=== PATIENT | male | born 1985 | race Caucasian/White ===

== ENCOUNTER 2024-12-09 14:35 | Outpatient (AMB) | payer BC, SELFPAY ==
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
--- OUTSIDE RECORDS SUMMARY | 2024-12-09 14:37 | XMS_ITS | Data Portability ---
Author Organization [facility] Address [address] [place] [id number] Assessment No assessment recorded. Plan of Treatment Reminders Order Date Submit Date Provider Last Modified By Organization Details Last Modified Time Details Appointments None record ed. Lab None record ed. Referral None record ed. Procedures None record ed. Surgeries None record ed. Imaging None record ed. Medication Orders None record ed. Patient TargetsNo targets recorded. Patient Instructions Encounter Date Encounter Id Patient Instructions Last Modified By Organization Details Last Modified Time 12/09/2022 [id number] This physical does not replace the annual physical to be performed by your PCP. There may be additional screening tests that they will perform that we do not in the urgent care setting. Failure to follow up as recommended may result in significant adverse health consequences. ??? If your symptoms worsen or you develop new symptoms that concern you, go to the emergency department for further evaluation. [email or web address] Not available 12/09/2022 10:13:48 Reason for Referral None Reported. Procedures Surgical History Date Name Laterality Status Provider Name and Address Organization Details Recorded Time OC-DOT PHYSICAL completed SUE [facility] 12/09/2022 09:44:22 Imaging Results None recorded. Procedure Notes None recorded. Medical Equipment None Reported. Medications Name Sig Start Date Stop Date Status Note LastModified by Organization Details LastModified Time buprenorphine 2 mg-naloxone 0.5 mg sublingual film 3 FILM DIRECTED DAILY active Not Available Not Available No t Available buprenorphine 8 mg-naloxone 2 mg sublingual film USE 1 FILM DAILY active Not Available Not Available No t Available buprenorphine 4 mg-naloxone 1 mg sublingual film 1 FILM UNDER THE TONGUE TWICE A DAY active Not Available Not Available No t Available Sublocade 300 mg/1.5 mL solution,exten ded release subcutaneous syringe active Not Available Not Available Not Available Vitals None Recorded Social History None recorded. Functional Status None recorded. Mental Status None recorded. Family History Nothing Reported. Medical History No medical history recorded. Past Encounters Encounter ID Performer Location Encounter Start Date Encounter Closed Date Diagnosis/Indication Diagnosis SNOMED-CT Code Diagnosis ICD10 Code Diagnosis Note [id number] [address] [facility] [place] [address] 08/03/2020 08:04:11 08/03/2020 08:49:02 [id number] [address] [place] [address] 04/19/2020 10:49:41 04/19/2020 11:33:17 [id number] Benedict Rodriguez [place] [address] [facility] [place] [address] 12/09/2022 09:35:58 12/09/2022 10:24:57 [employer] Business Banking Officer license medical examination [id number] Z02.4 Physical examination 588 0005 Z02.4 History an d physical examination, pre-employment [id number] Z02.1 Health Concerns Section Related Observation LastModified by Organization Detai ls LastModified Time None Recorded Concern Status LastModified by Organization Details LastModified Time None Recorded Advance Directives Directive None Recorded Payers Insurance Date Sequence Insurance Name Policy Number Policy Begum Covered Member ID Begum Member ID Guarantor Name 12/09/2022 1 BCELISHA-KIMBERLEY (PPO) [id number] Alex [facility] [id number] Alex [facility] 12/09/2022 PAY AT TOS Hi-Dis([place]) QUALITY BEVERAGE QUALITY BEVERAGE Alex [facility] 12/09/2022 OC-PAY AT TIME OF SERVICE 2022 Hi-Dis([place]) QUALITY BEVERAGE QUALITY BEVERAGE Alex [facility] Notes Date Note Type Note Provider Name a nd Address Organization Details Recorded Time 12/09/2022 text/html physical Benedict Rodriguez NP [address] [place], [address], [place] - [facility] 12/09/2022 10:19:25
[2024-12-09 14:39] VITALS: BP 127/83; PULSE 60; RESP 14; TEMP 36.7; O2SAT 96; BMI 31.2
== END 2024-12-09 15:12 | disposition home or self-care (01) ==
LOC: HO.HMCSH 14:35
PROVIDERS: PCP Internal Medicine; Visit Provider Internal Medicine
DX: M79.10 Myalgia, unspecified site (principal)

== ENCOUNTER → 2024-12-09 14:35 | Outpatient (BNVA) | payer BC, SELFPAY | PROVIDERS: PCP Internal Medicine; Visit Provider Internal Medicine | DX: Z13.89 Encounter for screening for other disorder (principal) ==

== ENCOUNTER 2024-12-15 12:59 | Outpatient (REF) | payer BC, SELFPAY ==
--- OUTSIDE RECORDS SUMMARY | 2024-12-15 13:59 | XMS_ITS | Patient Health Record ---
Author Organization [facility] Address [address] [place] [address] Care Team Providers Care Healthcare Representative Name Role Phone FUAD RODRIGUEZ Unavailable [phone] Allergies No Known Allergies Reason For Referral No Information Medications Medication SIG (Take, Route, Frequency, Duration) Notes Start Date End Date Status Ferrous Gluconate 324 (38 Fe) MG 1 tablet Orally three times a day for 30 days 08/13/2023 Active Ferrous Fumarate 325 (106 Fe) MG 1 tablet Orally Three times a Week for 30 days take sunday, sunday, and sunday02/09/2023 Active Social History Tobacco Use: Social History Observation Description Date Details (start date - stop date) Never Smoker NA - NA Tobacco Use/Smoking Question Answer Notes Are you a nonsmoker Problems Problem Type SNOMED Code ICD Code Onset Dates Problem Status W/U Status Risk Notes Problem Anemia (407687972) Anemia, unspecified (D64.9) Active confirmed Problem 533442522 Encounter for general adult medical examination without abnormal findings (Z00.00) Active confirmed Problem 908951018 Encounter for screening for lipoid disorders (Z13.220) Active confirmed Problem Fatigue (71692790) Fatigue, unspecified type (R53.83) Active confirmed Problem Vitamin D deficiency (00853580) Vitamin D deficiency (E55.9) Active confirmed Problem Essential hypertension (41576805) Hypertension, unspecified type (I10) Active confirmed Problem Elevated blood-pressure reading without diagnosis of hypertension (102741544) Elevated blood pressure reading (R03.0) Active confirmed Problem 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) Testosterone deficiency in male (E29.1) Active confirmed Problem Cough (77748247) Cough (R05.9) Active confirmed Plan Of Treatment Pending Test Test Name Order Date LIPID PANEL, STANDARD 01/22/2023 LIPID PANEL, STANDARD 08/13/2023 MICROALBUMIN, RANDOM URINE (W/CREATININE ) 01/22/2023 COMPREHENSIVE METABOLIC PANEL 01/22/2023 COMPREHENSIVE METABOLIC PANEL 08/13/2023 COMPREHENSIVE METABOLIC PANEL 02/09/2023 CBC (INCLUDES DIFF/PLT) 01/22/2023 CBC (INCLUDES DIFF/PLT) 08/13/2023 URINALYSIS, COMPLETE 01/22/2023 URINALYSIS, COMPLETE 02/09/2023 URINALYSIS, COMPLETE 08/13/2023 HEMOGLOBIN A1c 01/22/2023 INSULIN 01/22/2023 VITAMIN B12 01/22/2023 T4, FREE 01/22/2023 TSH 01/22/2023 VITAMIN D,25-OH,TOTAL,IA 01/22/2023 TESTOSTERONE, FREE (DIALYSIS) AND TOTAL, MS 01/22/2023 Insurance Providers Payer Name Payer Address Payer Phone Subscriber Number Group Number Insured Name Patient Relationship to Insured Coverage Start Date Coverage End Date [facility] [address] [place] [address] [id number] Alex Lancaster Self - patient is the insured 3 Medications Administered Medication Instructions Date of Administration Dosage Notes MICC B12 INJECTION 01/22/2023 MICC B12 INJECTION 01/30/2023 lot# [id number] vitamin b12 02/09/2023 1 mL
[2024-12-15 16:15] LABS: Hematocrit 36.6 % (42.0-52.0); Hemoglobin 11.2 g/dl (14.0-18.0); Mean Corpuscular HGB Conc 30.6 g/dl (31.0-36.0); Mean Corpuscular Hemoglobin 18.5 pg (27.0-33.0); Mean Platelet Volume 9.7 fL (9.4-12.4); Platelet Count 367 X10*3/uL (160-400); Red Blood Count 6.06 X10*6/uL (4.60-5.80)
[2024-12-15 16:17] LABS: Mean Corpuscular Volume 60.4 fL (80.0-98.0)
[2024-12-15 16:48] LABS: Alanine Aminotransferase 48 U/L (0-40); Albumin Level 4.8 g/dL (3.5-5.0); Alkaline Phosphatase 37 U/L (39-117); Anion Gap 9 (12-20); Aspartate Amino Transferase 41 U/L (5-37); Bilirubin Direct 0.5 mg/dL (0.0-0.5); Bilirubin Total 1.7 mg/dL (0.0-1.0); Blood Urea Nitrogen 18 mg/dL (9-16); Calcium 9.1 mg/dL (8.4-10.2); Carbon Dioxide 27 mmol/L (22-29); Chloride 107 mmol/L (96-108); Cholesterol 135 mg/dL (<200); Estimated Glomerular Filt Rate > 60; Glucose Random 74 mg/dL (60-115); HDL Cholesterol 37 mg/dL (>40); LDL Cholesterol Calculated 88 mg/dL (<100); Potassium 4.3 mmol/L (3.3-5.1); Sodium 139 mmol/L (135-145); Triglycerides 52 mg/dL (<150)
[2024-12-15 17:05] LABS: Erythrocyte Sedimentation Rate 1 MM/HR (0-15)
[2024-12-15 18:43] LABS: Appearance Urine Clear; Color Urine Yellow; Glucose Urine UA Negative (Negative); Leukocyte Esterase Urine Negative (Negative); Nitrite Urine Negative (Negative); PH 6.5 (5.0-9.0); Specific Gravity - Urine 1.015 (1.005-1.025); Urine Blood Negative (Negative); Urine Ketones Negative (Negative); Urine Protein Trace mg/dL (Neg-Trace)
[2024-12-16 11:08] LABS: Lyme Abs Screen <0.90 index
== END 2024-12-15 13:00 | disposition home or self-care (01) ==
LOC: HO.HMGCLDS 12:59
PROVIDERS: PCP Internal Medicine; Visit Provider Internal Medicine
DX: M79.10 Myalgia, unspecified site (principal); A69.23 Arthritis due to Lyme disease
CPT/HCPCS: 36415; 80048; 80061; 80076; 81003; 82550; 84443; 85027; 85652; 86617; 86618

== ENCOUNTER 2024-12-23 11:05 | Outpatient (AMB) | payer BC, SELFPAY ==
--- NOTE | 2024-12-23 11:00 | A.OFFPC_ITS ---
Intake Visit Reasons: Discuss labs Per Dr. 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 Donovan HPI Details Televisit: Lab work discussed. Pt reports he has anemia, always knew about it. His father and son have some form of anemia. Knee pain and stiffness he reported in the last ov has resolved. ON LICENSE OF [facility] Medical History (Updated 12/23/24 @ 13:03 by Alli Fierro MD) Substance use disorder Family History Father Cirrhosis Mother Fuentes Syndrome Social History Housing: House Alcohol intake: current Alcohol intake frequency: does not drink Patient Tobacco Use Status: Former Tobacco user Tobacco use type: Cigarette service: No Current occupational status: employed Cognitive needs: No Hearing needs: No Vision needs: No Questionnaire PHQ-9 Over the last 2 weeks, how often have you been bothered by any of the following problems? 1. Little interest or pleasure in doing things: not at all 2. Feeling down, depressed, or hopeless: not at all 3. Trouble falling or staying asleep, or sleeping too much: not at all 4. Feeling tired or having little energy: not at all 5. Poor appetite or overeating: not at all 6. Feeling bad about yourself - or that you are a failure or have let yourself or your family down: not at all 7. Trouble concentrating on things, such as reading the newspaper or watching television: not at all 8. Moving or speaking so slowly that other people could have noticed. Or the opposite - being so fidgety or restless that you have been moving around a lot more than usual: not at all 9. Thoughts that you would be better off or of hurting yourself in some way: not at all Total score: 0 Source: Developed by Drs. Konstantin Ca, Celeste Leija, Miguel A Lott and colleagues, with an educational shonna from [employer] Thrive Questionnaire Date Thrive assessed: 12/09/24 I am a: Patient What is your living situation today?: I have a steady place to live Within the past 12 months, did the food you bought not last and you didn't have the money to get more?: Never true Within the past 12 months, did you worry whether your food would run out before you got money to buy more?: Never true Do you have trouble paying for medicines?: No Do you have trouble getting transportation to medical appointments?: No Do you have trouble paying your heating and electricity bill?: No Do you have trouble taking care of your child, family member or friend?: No Do you have trouble with day-to-day activities such as bathing, preparing meals, shopping, managing finances, etc.?: No Are you currently unemployed and looking for a job?: No Are you interested in more education?: No Please select the resources that you would like help with: None THRIVE Score: 0 AUDIT C Alcohol Use Questionnaire (AUDIT-C) 1. How often do you have a drink containing alcohol?: Never 3. How often do you have six or more drinks on one occasion?: Never Total Score: 0 GAVIN-7 AMB Questionnaire GAVIN-7 Date GAVIN - 7 assessed: 12/09/24 Feeling nervous, anxious, or on edge: 0 = Not at all Not being able to stop or control worryin = Not at all Worrying too much about different things: 0 = Not at all Trouble relaxin = Not at all Being so restless that it is hard to sit still: 0 = Not at all Becoming easily annoyed or irritable: 0 = Not at all Feeling afraid as if something awful might happen: 0 = Not at all Total GAVIN-7 score (0-4 normal; 5-9 mild; 10-14 moderate; 15-21 severe): 0 Source: Developed by Drs. Konstantin Ca, Celeste Leija, Miguel A Lott and colleagues, with an educational shonna from [employer]. Physical exam (Primary Care) Tobacco/Smoking Status: Tobacco use Status Tobacco use date assessed 12/23/24 12/23/24 11:05 Patient Tobacco Use Status Former Tobacco user 12/23/24 11:05 Tobacco use type Cigarette 12/23/24 11:05 PHQ-9: PHQ-9 Score PHQ-9: Total score 0 12/23/24 11:07 Thrive Assessment: Date of Thrive Assessment Date Thrive assessed 12/09/24 12/23/24 11:05 Telehealth Telehealth Telehealth Platform: Telephone Location of provider rendering services: practice address Location of patient: other (work) Patient Identification confirmed using: Name, : Yes Telehealth method: voice only Patient verbally consented to treatment: Yes Patient verbally consented to billing insurance company: Yes Patient informed of any privacy concerns related to visit: Yes Minutes spent on Phone/Video with Pt.: 15 Coding Level of Care Code Tele Est Pt Level 4 (83695) Complex EM visit Add On G2211 Diagnoses Thalassemia minor D56.3 Assessment & Plan Assessment & Plan (1) Thalassemia minor: Code(s): D56.3 - Thalassemia minor Plan BW shows marked microcytosis with anemia. THal trait should be ruled out (FH present). Hematology appt and possible colonoscopy Orders: Referrals Hematology & Oncology Referral D56.3 - Thalassemia minor Medications: Refilled esomeprazole magnesium (Nexium) 40 mg PO DAILY 30 caps 0RF cyclobenzaprine 10 mg PO BEDTIME 14 tabs 0RF
--- OUTSIDE RECORDS SUMMARY | 2024-12-23 13:17 | XMS_ITS | Patient Health Record ---
Author Organization [facility] Address [address] [place] [address] Care Team Providers Care Slag Wheeler Name Role Phone FUAD RODRIGUEZ Unavailable [phone] Allergies No Known Allergies Reason For Referral [...] Status W/U Status Risk Notes Problem Anemia (137110099) Anemia, unspecified (D64.9) Active confirmed Problem 572118741 Encounter for general adult medical examination without abnormal findings (Z00.00) Active confirmed Problem 471994977 Encounter for screening for lipoid disorders (Z13.220) Active confirmed Problem Fatigue (58176351) Fatigue, unspecified type (R53.83) Active confirmed Problem Vitamin D deficiency (15065173) Vitamin D deficiency (E55.9) Active confirmed Problem Essential hypertension (19246444) Hypertension, unspecified type (I10) Active confirmed Problem Elevated blood-pressure reading without diagnosis of hypertension (319852971) Elevated blood pressure reading (R03.0) Active confirmed Problem Testicular hypofunction (337050200) Testosterone deficiency in male (E29.1) Active confirmed Problem Cough (04704395) Cough (R05.9) Active confirmed Plan Of Treatment [...] Insured Coverage Start Date Coverage End Date [facility] [address] [place] [address] [id number] Alex Lancaster Self - patient is the insured 3 Medications Administered Medication Instructions Date of Administration Dosage Notes MICC B12 INJECTION 01/22/2023 MICC B12 INJECTION 01/30/2023 lot# [id number] vitamin b12 02/09/2023 1 mL
== END 2024-12-23 12:53 | disposition home or self-care (01) ==
LOC: HO.HMCSH 11:08
PROVIDERS: PCP Internal Medicine; Visit Provider Internal Medicine
DX: D56.3 Thalassemia minor (principal)

== ENCOUNTER → 2024-12-23 11:05 | Outpatient (BNVA) | payer BC, SELFPAY | PROVIDERS: PCP Internal Medicine; Visit Provider Internal Medicine | DX: Z13.89 Encounter for screening for other disorder (principal) ==

== ENCOUNTER → 2025-02-16 10:07 | Outpatient (BNV) | payer BC, SELFPAY | PROVIDERS: PCP Internal Medicine; Referring Provider Internal Medicine; Visit Provider Internal Medicine Medical Oncology | DX: D56.3 Thalassemia minor (principal) | CPT/HCPCS: 99204 ==

== ENCOUNTER 2025-05-25 11:36 | Outpatient (AMB) | payer BC, SELFPAY ==
[2025-05-25 11:40] VITALS: BP 108/72; PULSE 70; TEMP 36.9; O2SAT 97; BMI 29.6
--- NOTE | 2025-05-25 11:40 | MHC.OFFWIV ---
Intake Vital Signs 05/25/25 11:40 Height 5 ft 8 in Weight 195 lb BMI 29.6 BP 108/72 Blood Pressure Location Lt brachial Position Sitting Pulse 70 Pulse Source Pulse Oximeter Temp 98.5 F Temp Source Oral Pulse Oximetry (%) 97 Oxygen Delivery Method Room Air Intake Visit Reasons: EP Back pain/ bruising Intake Note: pt presents with pain to left mid back with abrasion from falling onto motorcycle part after tripping over a leaf blower in his garage yesterday, pt reports pain to ribs with breathing and certain movements Patient Tobacco Use Status: Former Tobacco user Allergies No Known Allergies Allergy (Verified 05/25/25 11:49) Do you need a note to return to daycare/school/sports/work: Yes HPI HPI Comments History of Present Illness Details History of Present Illness - The patient is a 40-year-old male presenting with a fall resulting in back pain and potential rib injury. - The fall occurred at home when the patient tripped over a leaf blower, landing on his back. - The patient reports tenderness in the mid-back area with pain exacerbated by deep breathing and certain movements. - No swelling was observed to his back but he does have a scratch across his back. - The patient has not been using any analgesics for pain management. - The patient has a history of thalassemia and recent concerns about kidney function, which improved after reducing energy drink consumption. - He denies CP, SOB, abd pain, n/v/d, numbness, tingling, or radiation of the pain. - He denies LOC. He was able to get himself up after the fall. 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 - He needs a note for light duty. Physical Exam General: Cooperative, healthy appearing, comfortable, no acute distress and well developed Orientation: Patient oriented x3 Neck: Normal visual inspection, full ROM Respiratory: Normal respiratory effort, able to speak in complete sentences. No chest wall tenderness noted, no crepitus noted. Skin: No rashes or lesions noted. Superficial abrasion noted in the middle left back. No bruising noted. No deformity noted. Neuro: Patient oriented x3, CN dl2-12 intact, gait normal Back/spine: Tenderness noted in the mid-back area on the left in the thoracic muscles, no TTP cervical, thoracic or lumbar spine. No step offs noted. Extremities: FROM of the UE and LE bilaterally. Strength is 5/5 on UE and LE bilaterally. Patient was informed and verbally consented to the use of an ambient scribe for clinic note documentation during this visit. [facility] Medical History Substance use disorder Family History Father Cirrhosis Mother Fuentes Syndrome Social History Household Members: Spouse Housing: House Are you a primary medicare compliance auditor to a significant other at home: No Do you presently have visiting nurse or other home services: No Alcohol intake: current Alcohol intake frequency: does not drink Patient Tobacco Use Status: Former Tobacco user Tobacco use type: Cigarette service: No Current occupational status: employed Cognitive needs: No Hearing needs: No Vision needs: No Review of Systems Const All systems reviewed & are unremarkable except as noted in HPI and below Physical Exam Vital Signs: Last Vital Signs Temp 98.5 F 05/25/25 11:40 Pulse 70 05/25/25 11:40 BP 108/72 05/25/25 11:40 Pulse Ox 97 05/25/25 11:40 Oxygen Delivery Method Room Air 05/25/25 11:40 BMI result Body Mass Index 29.6 Results Reviewed Results Reviewed: will review the x-ray in the office Assessment & Plan Assessment & Plan (1) Mid back pain on left side: Code(s): M54.9 - Dorsalgia, unspecified Plan Most likely contusion vs fracture s/p fall at home Plan - An x-ray of the ribs is planned to assess for possible fracture. - Pain management with Tylenol or Motrin is recommended, considering the patient's concerns about liver and kidney health. - The patient is advised to take deep breaths regularly to prevent pneumonia. - The patient is advised to avoid heavy lifting and consider light duty at work if a fracture is confirmed. - A topical analgesic cream will be sent to the pharmacy for pain relief. - will call with the results - will write him a note for light duty - follow up with PCP Orders: Orders XR chest 2V Today R05.9 - Cough, unspecified Medications: New diclofenac sodium 3% 1 appl topical BID 100 grams 0RF Coding Level of Care Code Est Pt Level 4 (01129) Diagnoses Mid back pain on left side M54.9
--- OUTSIDE RECORDS SUMMARY | 2025-05-25 14:00 | XMS_ITS | Data Portability ---
Author Organization THADDEUS P[facility] [id number] Address [address] [place] [id number] Assessment No assessment recorded. Plan of Treatment [...] By Organization Details Last Modified Time 12/09/2022 [id number] This physical does not replace the annual physical to be performed by your PCP. There may be additional screening tests that they will perform that we do not in the urgent care setting. Failure to follow up as recommended may result in significant adverse health consequences. If your symptoms worsen or you develop new symptoms that concern you, go to the emergency department for further evaluation. [email or web address] Not available 12/09/2022 10:13:48 Reason for Referral None Reported. Procedures Surgical History Date Name Laterality Status Provider Name and Address Organization Details Recorded Time OC-DOT PHYSICAL completed SUE Paniagua [facility] 12/09/2022 09:44:22 Imaging Results None recorded. [...] Diagnosis SNOMED-CT Code Diagnosis ICD10 Code Diagnosis IMO Codes Diagnosis Note [id number] [facility] [place] [address] 08/03/2020 08:04:11 08/03/2020 08:49:02 [id number] [address] [place] [address] 04/19/2020 10:49:41 04/19/2020 11:33:17 [id number] [place] [address] [place] [address] 12/09/2022 09:35:58 12/09/2022 10:24:57 Process Development Chemist license medical examination [id number] Z02.4 Physical examination 588 0005 Z02.4 History an d physical examination, pre-employment [id number] Z02.1 Health Concerns Section Related Observation LastModified by Organization Detai ls LastModified Time None Recorded Concern Status LastModified by Organization Details LastModified Time None Recorded Advance Directives Directive None Recorded Payers Insurance Date Sequence Insurance Name Policy Number Policy Begum Covered Member ID Begum Member ID Guarantor Name 12/09/2022 1 [employer] [id number] Alex [facility] [id number] Alex [facility] 12/09/2022 PAY AT TOS Alex [facility]en [facility] QUALITY BEVERAGE [facility] 12/09/2022 OC-PAY AT TIME OF SERVICE 2022 Alex Ranken [facility] QU[employer]EVERAGE [facility] Notes Date Note Type Note Provider Name a nd Address Organization Details Recorded Time 12/09/2022 text/html physical Benedict Rodriguez NP [address] [place], [address], [place] - [facility] 12/09/2022 10:19:25
== END 2025-05-25 12:32 | disposition home or self-care (01) ==
PROVIDERS: PCP Internal Medicine; Visit Provider Physician Assistant Medical
DX: M54.9 Dorsalgia, unspecified (principal)

== ENCOUNTER 2025-05-25 11:36 | Outpatient (REF) | payer BC, SELFPAY ==
--- NOTE | ~2025-05-25 | XR_ITS ---
EXAMINATION: XR CHEST CLINICAL INFORMATION: R05.9 - Cough, unspecified COMPARISON: None available. TECHNIQUE: 2 views of the chest were obtained. FINDINGS: No significant abnormality is noted involving the heart, lungs, mediastinum, bony thorax or soft tissues. XR/XR chest 2V IMPRESSION: No acute disease Electronically signed by: Krishan Manuel MD 05/25/2025 12:36 PM [facility] [place]
== END 2025-05-25 11:37 | disposition home or self-care (01) ==
LOC: HO.HMGCX 11:36
PROVIDERS: PCP Internal Medicine; Visit Provider Physician Assistant Medical
DX: M54.9 Dorsalgia, unspecified (principal); R05.9 Cough, unspecified
CPT/HCPCS: 71046

== ENCOUNTER → 2025-05-25 12:25 | Outpatient (BNV) | payer BC, SELFPAY | PROVIDERS: PCP Internal Medicine; Visit Provider Radiology Diagnostic Radiology | DX: R05.9 Cough, unspecified (principal) | CPT/HCPCS: 71046 ==